=== PATIENT | female | born 1995 | race African-American/Black ===

== ENCOUNTER → 2017-10-23 | Outpatient (REF) | payer OTHER ==
[2017-10-23 22:53] LABS: CHLAMYDIA DNA AMPLIFICATION NEGATIVE (NEGATIVE); GC DNA AMPLIFICATION NEGATIVE (NEGATIVE)
== END ==
LOC: M SFHCLERA 14:22
DX: N89.8 Other specified noninflammatory disorders of vagina (principal)

== ENCOUNTER → 2017-11-08 | Outpatient (CLI) | payer OTHER ==
[2017-11-08 13:21] LABS: BASO % 0.4 % (0.0-1.0); EOS # 0.1 10^3/uL (0.0-0.50); HEMATOCRIT 40.1 % (36.0-47.0); HEMOGLOBIN 13.6 g/dl (12.0-15.5); IMMATURE GRANULOCYTE % 0.4 % (0-3.0); LYMPH # 2.6 10^3/uL (1.5-6.5); MEAN CORPUSCULAR HEMOGLOBIN 28.6 pg (27.0-33.0); MEAN CORPUSCULAR HGB CONC 33.9 g/dl (32.0-36.5); MEAN CORPUSCULAR VOLUME 84.2 fl (80.0-96.0); MONO # 0.6 10^3/uL (0.0-0.8); MONO % 5.2 % (0.0-5.0); NEUTROPHILS # 7.9 10^3/uL (1.8-7.7); PLATELET COUNT, AUTOMATED 296 10^3/uL (150-450); RED BLOOD COUNT 4.76 10^6/uL (4.00-5.40); RED CELL DISTRIBUTION WIDTH 14.5 % (11.5-14.5); WHITE BLOOD COUNT 11.2 10^3/uL (4.0-10.0)
[2017-11-08 13:54] LABS: RUBELLA IgG QUALITATIVE IMMUNE (IMMUNE)
[2017-11-08 13:56] LABS: HBsAg Prenatal NEGATIVE (NEGATIVE)
[2017-11-08 14:23] LABS: HEPATITIS C VIRUS ABY INDEX 0.3 INDEX (<0.8)
[2017-11-08 14:23] LABS: HIV 1&2 SCREEN CENTAUR NEGATIVE (NEGATIVE)
[2017-11-08 16:09] LABS: CHLAMYDIA DNA AMPLIFICATION NEGATIVE (NEGATIVE); GC DNA AMPLIFICATION NEGATIVE (NEGATIVE)
== END ==
LOC: M SMT 10:11
DX: Z36.89 Encounter for other specified antenatal screening (principal); Z3A.08 8 weeks gestation of pregnancy
CPT/HCPCS: 86762

== ENCOUNTER → 2018-01-26 | Outpatient (CLI) | payer OTHER | LOC: M RAD 08:32 | DX: Z34.82 Encounter for supervision of other normal pregnancy, second trimester (principal); Z3A.19 19 weeks gestation of pregnancy | CPT/HCPCS: 76811 ==

== ENCOUNTER → 2018-02-09 | Outpatient (CLI) | payer OTHER | LOC: M RAD 11:22 | DX: Z34.82 Encounter for supervision of other normal pregnancy, second trimester (principal); Z36.89 Encounter for other specified antenatal screening; Z3A.21 21 weeks gestation of pregnancy | CPT/HCPCS: 76816 ==

== ENCOUNTER 2020-02-22 18:01 | Emergency (ER) | payer OTHER ==
[~2020-02-22] VITALS: Ht 160 cm; Wt 72.8 kg
[2020-02-22] MEDS ORDERED: METOCLOPRAMIDE INJ 10MG/2ML VIAL (J2765 PER 1) IV ONE (19:00)
[2020-02-22] MEDS ORDERED: NS 1,000 ML IV ONE (19:00)
[2020-02-22] MEDS ORDERED: ACETAMINOPHEN 500 MG TAB PO ONE (19:00)
[2020-02-22 19:47] LABS: BASO # 0.1 10^3/uL (0.0-0.2); BASO % 0.9 % (0.0-1.0); EOS # 0.3 10^3/uL (0.0-0.5); EOS % 3.8 % (0.0-3.0); HEMATOCRIT 42.8 % (36.0-47.0); HEMOGLOBIN 13.7 g/dl (12.0-15.5); LYMPH # 3.2 10^3/uL (1.5-5.0); MEAN CORPUSCULAR HEMOGLOBIN 27.1 pg (27.0-33.0); MEAN CORPUSCULAR VOLUME 84.6 fl (80.0-96.0); MONO # 0.4 10^3/uL (0.0-0.8); MONO % 4.7 % (0.0-5.0); NEUTROPHILS # 3.5 10^3/uL (1.5-8.5); NEUTROPHILS % 47.3 % (36.0-66.0); PLATELET COUNT, AUTOMATED 289 10^3/uL (150-450); RED BLOOD COUNT 5.06 10^6/uL (4.00-5.40); WHITE BLOOD COUNT 7.4 10^3/uL (4.0-10.0)
[2020-02-22 20:14] LABS: C REACTIVE PROTEIN QUANTITATIV < 0.30 MG/DL (0.00-0.30); HCG, SERUM QUANTITATIVE 443 MIU/ML
[2020-02-22 20:27] LABS: ERYTHROCYTE SEDIMENTATION RATE 6 mm/hr (0-20)
[2020-02-22 20:31] LABS: HEMOGLOBIN A1c 5.7 %
[2020-02-22 21:26] VITALS: BP 103/57
== END 2020-02-22 21:35 | disposition home or self-care (01) ==
LOC: M ED 18:01
DX: O99.891 Other specified diseases and conditions complicating pregnancy (principal); R51.9 Headache, unspecified; H53.19 Other subjective visual disturbances; Z3A.00 Weeks of gestation of pregnancy not specified; Z82.49 Family history of ischemic heart disease and other diseases of the circulatory system
CPT/HCPCS: 80047; 83036; 84702; 85025; 85652; 86140; 96374; 99284; J2765

== ENCOUNTER 2021-01-28 16:13 | Emergency (ER) | payer OTHER ==
[~2021-01-28] VITALS: Ht 160 cm; Wt 71.5 kg
[~2021-01-28 16:13] MED LIST: REGL10TA6 PO; TRI-TAB PO
[2021-01-28 16:14] VITALS: BP 104/60
--- OUTSIDE RECORDS SUMMARY | 2021-01-28 16:20 | CCD ---
Author Author [facility] Organization [facility] Address Unknown Phone Unavailable Care Team Providers Care Trimming Department Blocker Name Role Phone Ayse-Centner, Deborah Unavailable Unavailable Ayse-Centner, Deborah Unavailable Unavailable Ayse-Centner, Deborah Unavailable Unavailable Ayse-Centner, Deborah Unavailable Unavailable Ayse-Centner, Deborah Unavailable Unavailable Ayse-Centner, Deborah Unavailable Unavailable Ayse-Centner, Deborah Unavailable Unavailable Ayse-Centner, Deborah Unavailable Unavailable Ayse-Centner, Deborah Unavailable Unavailable Ayse-Centner, Deborah Unavailable Unavailable Ayse-Centner, Deborah Unavailable Unavailable POTTER, OLEG Unavailable Unavailable POTTER, OLEG Unavailable Unavailable POTTER, OLEG Unavailable Unavailable POTTER, OLEG Unavailable Unavailable POTTER, OLEG Unavailable Unavailable Cho, Aline CONCRETE INSPECTOR Unavailable Unavailable Cho, Aline CONCRETE INSPECTOR Unavailable Unavailable Cho, Aline CONCRETE INSPECTOR Unavailable Unavailable Cho, Aline CONCRETE INSPECTOR Unavailable Unavailable Cho, Aline CONCRETE INSPECTOR Unavailable Unavailable Cho, Aline CONCRETE INSPECTOR Unavailable Unavailable Cho, Aline CONCRETE INSPECTOR Unavailable Unavailable Cho, Aline CONCRETE INSPECTOR Unavailable Unavailable Cho, Aline CONCRETE INSPECTOR Unavailable Unavailable Cho, Aline CONCRETE INSPECTOR Unavailable Unavailable Cho, Aline CONCRETE INSPECTOR Unavailable Unavailable Valladares, [place] Josephine Unavailable Unavailable Valladares, [place] Josephine Unavailable Unavailable Valladares, [place] Josephine Unavailable Unavailable Valladares, [place] Josephine Unavailable Unavailable Valladares, [place] Josephine Unavailable Unavailable Valladares, [place] Josephine Unavailable Unavailable Valladares, [place] Josephine Unavailable Unavailable Valladares, [place] Josephine Unavailable Unavailable Valladares, [place] Josephine Unavailable Unavailable Valladares, [place] Josephine Unavailable Unavailable Valladares, [place] Josephine Unavailable Unavailable Valladares, [place] Josephine Unavailable Unavailable Valladares, [place] Josephine Unavailable Unavailable Re-disclosure Warning The records that you are about to access may contain information from federally-assisted alcohol or drug abuse programs. If such information is present, then the following federally mandated warning applies: This information has been disclosed to you from records protected by federal confidentiality rules (42 CFR part 2). The federal rules prohibit you from making any further disclosure of this information unless further disclosure is expressly permitted by the written consent of the person to whom it pertains or as otherwise permitted by 42 CFR part 2. A general authorization for the release of medical or other information is NOT sufficient for this purpose. The Federal rules restrict any use of the information to criminally investigate or prosecute any alcohol or drug abuse patient.The records that you are about to access may contain highly sensitive health information, the redisclosure of which is protected by Article 27-F of the [facility] Public Health law. If you continue you may have access to information: Regarding HIV / AIDS; Provided by facilities licensed or operated by the [facility] Office of Mental Health; or Provided by the [facility] Office for People With Developmental Disabilities. If such information is present, then the following [facility] mandated warning applies: This information has been disclosed to you from confidential records which are protected by state law. State law prohibits you from making any further disclosure of this information without the specific written consent of the person to whom it pertains, or as otherwise permitted by law. Any unauthorized further disclosure in violation of state law may result in a fine or halfway sentence or both. A general authorization for the release of medical or other information is NOT sufficient authorization for further disc losure. Allergies and Adverse Reactions Type Description Substance Reaction Status Data Source(s ) Allergy to substance Allergy to substance Allergy to substance [place] ([facility]) Allergy to substance Allergy to substance Allergy to substance [place] ([facility]) Encounters Encounter Providers Location Date Indications Data Source(s ) Deborah Tavera RPA-C: [address] [place] [address], Ph. Attender: Deborah Wiggins [place] - [facility] Medical 09/02/2020 12:00:00 AM EDT [place] ([facility]) SADIE Cruz: [address] [place] [address], Ph. Attender: Josephine Valladares [facility] Medical 08/06/2020 12:00:00 AM EDT [place] ([facility]) JosephineNIYAH Haines-C: [address] [place] [address], Ph. Attender: Josephine Valladares [facility] Medical 08/06/2020 12:00:00 AM EDT [place] ([facility]) Attender: OLEG TRACY Care Coordination 06:51:00 PM EST - 03/16/2020 06:51:00 PM EST [facility] Attender: Aline Cho NP [facility] [place] 2019 11:15:00 AM EST - 02/28/2020 11:15:00 AM EST Encounter for test, result pos itiveEncntr screen for dis of the bld/bld-form org/immun mechnsmEncounter for oth general cnsl and advice on contraceptionEncntr screen for infections w sexl mode of transmissEncounter for elective termination of [facility] ([facility]) Encounter for test, result pos itive Encntr screen for dis of the bld/bld-for m org/immun mechnsm Encounter for oth general cnsl and advic e on contraception Encntr screen for infections w sexl mode of transmiss Encounter for elective termination of pr egnancy Immunizations Vaccine Date Status Description Data Source(s) COVID-19, mRNA, LNP-S, PF, 100 mcg/0.5 mL dose 09/02/2020 07 :25:34 PM EDT completed .5 mL [place] ([facility]) COVID-19 VACCINE Moderna 09/02/2020 12:00:00 AM EDT completed [place] Vaccine Series Complete: YESThis Data wa s Submitted to [facility] Via Location. COVID-19, mRNA, LNP-S, PF, 100 mcg/0.5 mL dose 08/06/2020 06 :59:25 PM EDT completed 10.5 mL [place] ([facility]) COVID-19, mRNA, LNP-S, PF, 100 mcg/0.5 mL dose 08/06/2020 06 :59:25 PM EDT completed 10.5 mL [place] ([facility]) COVID-19 VACCINE Moderna 08/06/2020 12:00:00 AM EDT completed Location Vaccine Series Complete: NOThis Data was Submitted to [facility] Via Location. Medications Medication Brand Name Start Date Product Form Dose Route Admi nistrative Instructions Pharmacy Instructions Status Indications Reaction Description Data Source(s) Mifepristone 200 MG ORAL TABLET Mifepristone 02/28/2020 12:00:00 AM EST active 1 tab po administered to pt in clinic [facility] Misoprostol 0.2 MG Oral Tablet misoprostol 200 mcg tab let misoprostol 200 mcg tablet 02/28/2020 12:00:00 AM EST completed 4 tabs buccally 24-48 hrs after mifepristone (#4) [facility] ([facility]) Acetaminophen 500 MG Oral Tablet Acetaminophen Pain Re lief 500 mg tablet Acetaminophen Pain Relief 500 mg tablet 02/28/2020 12:00:00 AM EST active 2 PO q8 hrs prn pain, max dose 6 tabs per day (max 3000mg/day) [facility] Ibuprofen 800 MG Oral Tablet ibuprofen 800 mg tablet ibuprof en 800 mg tablet 02/28/2020 12:00:00 AM EST active 1 tab po q 8 hrs prn pain [facility] ([facility] Insurance Providers Payer name Policy type / Coverage type Policy ID Covered green party ID Covered green party's relationship to fam Policy Fam Plan Information [facility] [id number] [facility] [id number] Problems, Conditions, and Diagnoses No Information Surgeries/Procedures Procedure Description Date Indications Data Source(s) OFFICE/OUTPATIENT VISIT, [facility] 02/28/2020 12:00:00 AM EST - 02/28/2020 12:00:00 AM EST [facility] ([facility]) Misoprostol #4 oral, 200 mcg 02/28/2020 12:00:00 AM EST - 02/28/2020 12:00:00 AM EST [facility] ([facility]) Mifepristone, oral, 200 mg 02/28/2020 12 :00:00 AM EST - 02/28/2020 12:00:00 AM EST [facility] ([facility]) TRANSVAGINAL US, OBSTETRIC 02/28/2020 12 :00:00 AM EST - 02/28/2020 12:00:00 AM EST [facility] ([facility]) N.GONORRHOEAE, DNA, AMP PROB 02/28/2020 12:00:00 AM EST - 02/28/2020 12:00:00 AM EST [facility] ([facility]) CHYLMD TRACH, DNA, AMP PROBE 02/28/2020 12:00:00 AM EST - 02/28/2020 12:00:00 AM EST [facility] ([facility]) URINE TEST 02/28/2020 12:00:00 AM EST - 02/28/2020 12:00:00 AM EST [facility] ([facility]) HEMOGLOBIN 02/28/2020 12:00:00 AM EST - 02/28/2020 1 2:00:00 AM EST [facility] ([facility]) Results ID Date Data Source [id number] 02/28/2020 12:16:09 PM EST [facility] ([facility]) Name Value Range Interpretation Code Description Data Keesha rce(s) Supporting Document(s) Positive Abnormal (applies to non-num renu results) High Sensitivity Urine Test [facility] ([facility]) ID Date Data Source [id number] 02/28/2020 12:15:59 PM EST [facility] ([facility]) Name Value Range Interpretation Code Description Data Keesha rce(s) Supporting Document(s) 13.10 gm/dL Hemoglobin [facility] ([facility]) Procedure Social History Code Duration Value Status Description Data Source(s ) Smoking 03/16/2020 12:00:00 AM EST Never smoker completed Never s moker [facility] ([facility] 02/28/2020 12:00:00 AM EST Current non-smoker completed C urrent non-smoker [facility] ([facility] Vital Signs ID Date Data Source UNK Name Value Range Interpretation Code Description Data Source(s) Body height 160.02 cm 160.02 cm [facility] ([facility]) Body weight 71.668 kg 71.668 kg [facility] ([facility] Systolic blood pressure 110 mm[Hg] 110 mm[Hg] N extGen ([facility]) Diastolic blood pressure 70 mm[Hg] 70 mm[Hg] [facility] ([facility] Body temperature 36.78 Kristine 36.78 Kristine Next[facility] ([facility] Body mass index (BMI) [Ratio] 27.99 kg/m2 Overweight 27.99 kg/m2 Next[facility] ([facility] Patient Treatment Plan of Care Planned Activity Planned Date Details Description Data Source (s) Mifepristone 200 MG ORAL TABLET 02/28/2020 12:00:00 AM EST [facility] ([facility] Ibuprofen 800 MG Oral Tablet 02/28/2020 12:00:00 AM EST [facility] ([facility] Misoprostol 0.2 MG Oral Tablet 02/28/2020 12:00:00 AM EST [facility] ([facility] Acetaminophen 500 MG Oral Tablet 02/28/2020 12:00:00 AM EST [facility] ([facility])
[2021-01-28 18:40] LABS: HCG, SERUM QUALITATIVE NEGATIVE (NEGATIVE)
[2021-01-28 18:54] LABS: GC DNA AMPLIFICATION NEGATIVE (NEGATIVE)
--- OUTSIDE RECORDS SUMMARY | 2021-01-28 18:55 | CCD ---
Author Author [facility] Organization [facility] Address Unknown Phone Unavailable Care Team Providers Care Security Police Officer Name Role Phone Ayse-Centner, Deborah Unavailable Unavailable [...] Unavailable POTTER, OLEG Unavailable Unavailable Cho, Aline PARTY PLAN SALES CONSULTANT Unavailable Unavailable Hco, Aline PARTY PLAN SALES CONSULTANT Unavailable Unavailable Cho, Aline PARTY PLAN SALES CONSULTANT Unavailable Unavailable Cho, Aline PARTY PLAN SALES CONSULTANT Unavailable Unavailable Cho, Aline PARTY PLAN SALES CONSULTANT Unavailable Unavailable Cho, Aline PARTY PLAN SALES CONSULTANT Unavailable Unavailable Cho, Aline PARTY PLAN SALES CONSULTANT Unavailable Unavailable Cho, Aline PARTY PLAN SALES CONSULTANT Unavailable Unavailable Cho, Aline PARTY PLAN SALES CONSULTANT Unavailable Unavailable Cho, Aline PARTY PLAN SALES CONSULTANT Unavailable Unavailable Cho, Aline PARTY PLAN SALES CONSULTANT Unavailable Unavailable Valladares, [place] Josephine Unavailable Unavailable Valladares, [place] Josephine Unavailable Unavailable Valladares, [place] Josephine Unavailable Unavailable Valladares, [place] Josephine Unavailable Unavailable Valladares, [place] Josephine Unavailable Unavailable Valladares, [place] Josephine Unavailable Unavailable Valladares, [place] Josephine Unavailable Unavailable Valladares, [place] Josephine Unavailable Unavailable Valladares, [place] Josephine Unavailable Unavailable Valladares, [place] Josephine Unavailable Unavailable Valladares, [place] Josephine Unavailable Unavailable Valladares, [place] Josephine Unavailable Unavailable Valladares, [place] Josephine Unavailable Unavailable Re-disclosure Warning The records [...] is protected by Article 27-F of the [facility] Public Health law. If you continue you may have access to information: Regarding HIV / AIDS; Provided by facilities licensed or operated by the [facility] Office of Mental Health; or Provided by the [facility] Office for People With Developmental Disabilities. If such information is present, then the following [facility] mandated warning applies: This information has been [...] law may result in a fine or penitentiary sentence or both. A general authorization for the release of medical or other information is NOT sufficient authorization for further disc losure. Allergies and Adverse Reactions Type Description Substance Reaction Status Data Source(s ) Allergy to substance Allergy to substance Allergy to substance [place] ([facility]) Allergy to substance Allergy to substance Allergy to substance [place] ([facility]) Encounters Encounter Providers Location Date Indications Data Source(s ) CHRISTI MilianC: [address] [place] [address], Ph. Attender: Deborah Wiggins [place] - [facility] Medical 09/02/2020 12:00:00 AM EDT [place] ([facility]) NIYAH Cruz-C: [address] [place] [address], Ph. Attender: Josephine Valladares [facility] Medical 08/06/2020 12:00:00 AM EDT [place] ([facility]) Josephine NIYAH Valladares-C: [address] [place] [address], Ph. Attender: Josephine Valladares [facility] Medical 08/06/2020 12:00:00 AM EDT [place] ([facility]) Attender: OLEG CHENGNY Care Coordination 06:51:00 PM EST - 03/16/2020 06:51:00 PM EST [facility] ([facility]) Attender: Aline Cho NP PPCWNY [place] 2019 11:15:00 AM EST - 02/28/2020 11:15:00 AM EST Encounter for test, result pos itiveEncntr screen for dis of the bld/bld-form org/immun mechnsmEncounter for oth general cnsl and advice on contraceptionEncntr screen for infections w sexl mode of transmissEncounter for elective termination of [facility] ([facility]) Encounter for test, result pos itive [...] dose 09/02/2020 07 :25:34 PM EDT completed 10.5 mL [place] ([facility]) COVID-19 VACCINE Moderna 09/02/2020 12:00:00 AM EDT completed [place] Vaccine Series Complete: YESThis Data wa s Submitted to [facility] Via [employer]. COVID-19, mRNA, LNP-S, PF, 100 mcg/0.5 mL dose 08/06/2020 06 :59:25 PM EDT completed 10.5 mL [place] ([facility]) COVID-19, mRNA, LNP-S, PF, 100 mcg/0.5 mL dose 08/06/2020 06 :59:25 PM EDT completed 10.5 mL [place] ([facility]) COVID-19 VACCINE Moderna 08/06/2020 12:00:00 AM EDT completed [employer] Vaccine Series Complete: NOThis Data was Submitted to [facility] Via [employer]. Medications Medication Brand Name Start Date Product Form Dose Route Admi nistrative Instructions Pharmacy Instructions Status Indications Reaction Description Data Source(s) Mifepristone 200 MG ORAL TABLET Mifepristone 02/28/2020 12:00:00 AM EST active 1 tab po [facility] Misoprostol 0.2 MG Oral Tablet misoprostol 200 mcg tab let misoprostol 200 mcg tablet 02/28/2020 12:00:00 AM EST completed 4 tabs buccally 24-48 hrs after mifepristone (#4) [facility] Acetaminophen 500 MG Oral Tablet Acetaminophen Pain Re lief 500 mg tablet Acetaminophen Pain Relief 500 mg tablet 02/28/2020 12:00:00 AM EST active 2 PO q8 hrs prn pain, max dose 6 tabs per day (max 3000mg/day) [facility] ([facility]) Ibuprofen 800 MG Oral Tablet ibuprofen 800 mg tablet ibuprof en 800 mg tablet 02/28/2020 12:00:00 AM EST active 1 tab po q 8 hrs prn pain [facility] Insurance Providers Payer name Policy type / Coverage type Policy ID Covered republican ID Covered republican's relationship to fam Policy Fam Plan Information [facility] [id number] [facility] [id number] Problems, Conditions, and Diagnoses No Information Surgeries/Procedures Procedure Description Date Indications Data Source(s) OFFICE/OUTPATIENT VISIT, [facility] 02/28/2020 12:00:00 AM EST - 02/28/2020 12:00:00 AM EST [facility] ([facility]) Misoprostol #4 oral, 200 mcg 02/28/2020 12:00:00 AM EST - 02/28/2020 12:00:00 AM EST [facility] ([facility]) Mifepristone, oral, 200 mg 02/28/2020 12 :00:00 AM EST - 02/28/2020 12:00:00 AM EST [facility] ([facility]) TRANSVAGINAL US, OBSTETRIC 02/28/2020 12 :00:00 AM EST - 02/28/2020 12:00:00 AM EST [facility] ([facility]) N.GONORRHOEAE, DNA, AMP PROB 02/28/2020 12:00:00 AM EST - 02/28/2020 12:00:00 AM EST [facility] ([facility] CHYLMD TRACH, DNA, AMP PROBE 02/28/2020 12:00:00 AM EST - 02/28/2020 12:00:00 AM EST [facility] ([facility]) URINE TEST 02/28/2020 12:00:00 AM EST - 02/28/2020 12:00:00 AM EST [facility] ([facility]) HEMOGLOBIN 02/28/2020 12:00:00 AM EST - 02/28/2020 1 2:00:00 AM EST [facility] ([facility]) Results ID Date Data Source [id number] 02/28/2020 12:16:09 PM EST [facility] ([facility]) Name Value Range Interpretation Code Description Data Keesha rce(s) Supporting Document(s) Positive Abnormal (applies to non-num renu results) High Sensitivity Urine Test [facility] ([facility]) ID Date Data Source [id number] 02/28/2020 12:15:59 PM EST [facility] ([facility]) Name Value Range Interpretation Code Description Data Keesha rce(s) Supporting Document(s) 13.10 gm/dL Hemoglobin [facility] ([facility]) Procedure Social History Code Duration Value Status Description Data Source(s ) Smoking 03/16/2020 12:00:00 AM EST Never smoker completed Never s moker [facility] ([facility]) 02/28/2020 12:00:00 AM EST Current non-smoker completed C urrent non-smoker [facility] ([facility]) Vital Signs ID Date Data Source UNK Name Value Range Interpretation Code Description Data Source(s) Body height 160.02 cm 160.02 cm [facility] ([facility]) Body weight 71.668 kg 71.668 kg [facility] ([facility] Systolic blood pressure 110 mm[Hg] 110 mm[Hg] N [facility] ([facility]) Diastolic blood pressure 70 mm[Hg] 70 mm[Hg] [facility] ([facility] Body temperature 36.78 Kristine 36.78 Kristine [facility] ([facility] Body mass index (BMI) [Ratio] 27.99 kg/m2 Overweight 27.99 kg/m2 [facility] ([facility] Patient Treatment Plan of Care Planned Activity Planned Date Details Description Data Source (s) Mifepristone 200 MG ORAL TABLET 02/28/2020 12:00:00 AM EST [facility] ([facility]) Ibuprofen 800 MG Oral Tablet 02/28/2020 12:00:00 AM EST [facility] ([facility]) Misoprostol 0.2 MG Oral Tablet 02/28/2020 12:00:00 AM EST [facility] ([facility]) Acetaminophen 500 MG Oral Tablet 02/28/2020 12:00:00 AM EST [facility] ([facility])
[2021-01-28] MEDS ORDERED: CIPROFLOXACIN 500MG TABLET PO ONE (19:05)
[2021-01-28] MEDS ORDERED: PHENAZOPYRIDINE 100 MG TAB PO ONE (19:05)
[2021-01-28] MEDS ORDERED: CIPR-249 PO (19:06)
[2021-01-28] MEDS ORDERED: PYRI1TAB5 PO (19:06)
== END 2021-01-28 19:49 | disposition home or self-care (01) ==
LOC: M ED 16:13
DX: N39.0 Urinary tract infection, site not specified (principal); Z79.3 Long term (current) use of hormonal contraceptives